=== PATIENT | male | born 1965 | race Caucasian/White ===

== ENCOUNTER 2018-05-31 19:24 | Emergency (ER) | payer BC ==
--- NOTE | 2018-05-31 19:26 | EDM.PDOC ---
ED HPI GENERAL MEDICAL PROBLEM - General Stated Complaint: RIGHT FOOT PAIN Time Seen by Provider: 05/31/18 19:25 Source of Information: Reports: Patient History Limitations: Reports: No Limitations - History of Present Illness INITIAL COMMENTS - FREE TEXT/NARRATIVE: HISTORY AND PHYSICAL: History of present illness: 52-year-old male presenting to emergency department with chief complaint of left foot pain 1 day Patient states that he woke up this morning and had left foot/heel pain. Denies any known trauma to the area. 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 States the pain is just below his Achilles near the top of his back heel. Denies any loss of sensation, strength. States pain is worse with walking and bending foot backwards. Denies any previous trauma or trauma to foot or ankle. On exam patient has tenderness to palpation allong area of attachement of Achilles. Hopkins test negative. No pain with flexion of toes and papation of plantar fascia. Review of systems: As per history of present illness and below otherwise all systems reviewed and negative. Past medical history: As per history of present illness and as reviewed below otherwise noncontributory. Surgical history: As per history of present illness and as reviewed below otherwise noncontributory. Social history: No reported history of drug or alcohol abuse. Family history: As per history of present illness and as reviewed below otherwise noncontributory. Physical exam: HEENT: Atraumatic, normocephalic, pupils reactive, negative for conjunctival pallor or scleral icterus, mucous membranes moist, throat clear, neck supple, nontender, trachea midline. Lungs: Clear to auscultation, breath sounds equal bilaterally, chest nontender. Heart: S1S2, regular, negative for clicks, rubs, or JVD. Abdomen: Soft, nondistended, nontender. Negative for masses or hepatosplenomegaly. Negative for costovertebral tenderness. Pelvis: Stable nontender. Genitourinary: Deferred. Rectal: Deferred. Extremities: Atraumatic, negative for cords or calf pain. Neurovascular unremarkable. Neuro: Awake, alert, oriented. Cranial nerves II through XII unremarkable. Cerebellum unremarkable. Motor and sensory unremarkable throughout. Exam nonfocal. Diagnostics: left foot x-ray Therapeutics: [] Impression: Achilles tendinopathy Plan: Left foot x-ray was unremarkable. Most likely patient has tendinopathy. Did give patient a prescription for diclofenac and told him to rest, ice, elevate, and follow up with primary care provider. Definitive disposition and diagnosis as appropriate pending reevaluation and review of above. Left Feet Pain Score (Numeric/FACES): 8 left heel Pain Score (Numeric/FACES): 8 - Related Data Allergies Allergy/AdvReac Type Severity Reaction Status Date / Time No Known Allergies Allergy Verified 05/31/18 20:14 Home Meds: Home Meds Aspirin [[place] Aspirin] 1 tab PO DAILY 04/25/16 [History] Multivitamin [Multivitamins] 1 tab PO DAILY 04/25/16 [History] Cetirizine [ZyrTEC] 05/31/18 [History] Past Medical History HEENT History: Reports: None Cardiovascular History: Reports: None Respiratory History: Reports: None Gastrointestinal History: Reports: GERD Genitourinary History: Reports: None Neurological History: Reports: None Psychiatric History: Reports: None Endocrine/Metabolic History: Reports: Obesity/BMI 30+ Hematologic History: Reports: None Immunologic History: Reports: None Oncologic (Cancer) History: Reports: None Dermatologic History: Reports: None - Past Surgical History GI Surgical History: Reports: Hernia, Inguinal Musculoskeletal Surgical History: Reports: Arthroscopic Knee ED ROS GENERAL - Review of Systems Review Of Systems: ROS reveals no pertinent complaints other than HPI. ED EXAM, GENERAL - Physical Exam Exam: See Below Course - Vital Signs Last Recorded V/S: Last Vital Signs Temp 98.2 F 05/31/18 20:07 Pulse 96 05/31/18 20:07 Resp 18 05/31/18 20:07 BP 141/85 H 05/31/18 20:07 Pulse Ox 96 05/31/18 20:07 - Orders/Labs/Meds Orders: Active Orders 24 hr Category Date Time Status Foot 2V Lt [CR] Stat Exams 05/31/18 20:04 Taken Departure - Departure Time of Disposition: 21:35 Disposition: Home, Self-Care 01 Condition: Good Clinical Impression: Achilles tendinitis, left leg - Discharge Information Referrals: Fernando Hernandez [Primary Care Provider] - Additional Instructions: My general discharge The following information is given to patients seen in the emergency department who are being discharged to home. This information is to outline your options for follow-up care. We provide all patients seen in our emergency department with a follow-up referral. The need for follow-up, as well as the timing and circumstances, are variable depending upon the specifics of your emergency department visit. If you don't have a primary care physician on staff, we will provide you with a referral. We always advise you to contact your personal physician following an emergency department visit to inform them of the circumstance of the visit and for follow-up with them and/or the need for any referrals to a consulting specialist. The emergency department will also refer you to a specialist when appropriate. This referral assures that you have the opportunity for follow-up care with a specialist. All of these measure are taken in an effort to provide you with optimal care, which includes your follow-up. Under all circumstances we always encourage you to contact your private physician who remains a resource for coordinating your care. When calling for follow-up care, please make the office aware that this follow-up is from your recent emergency room visit. If for any reason you are refused follow-up, please contact the [facility] at and asked to speak to the emergency department charge nurse. [facility] [address] [place] [id number] Follow-up with primary care as we discussed. Take medications as discussed. Return emergency department if any new or worsening symptoms. - My Orders Last 24 Hours: My Active Orders 05/31/18 20:04 Foot 2V Lt [CR] Stat - Assessment/Plan Last 24 Hours: My Active Orders 05/31/18 20:04 Foot 2V Lt [CR] Stat
[2018-05-31 20:14] VITALS: BP 141/85
--- NOTE | 2018-06-01 14:21 | CR ---
EXAM DATE: 05/31/18 PATIENT'S AGE: 52 Patient: SHAYAN ARREAGA Facility: [place], [place] Site . Site : 1965 Study: XRay Extremity Left foot [id number]/13/2018 9:14:06 PM Ordering Physician: Gelacio Pena Final Report: INDICATION: pain x1 day, no known injury TECHNIQUE: Two views of the left foot COMPARISON: None FINDINGS: Bones: Enthesophyte formation along the plantar aspect of the calcaneus and Achilles tendon insertion to the calcaneus. No fractures or bone lesions. Joint spaces: Unremarkable. Soft tissues: Soft tissue swelling laterally. IMPRESSION: Soft tissue swelling laterally. No evidence for acute bony abnormality on these two views of the left foot. Dictated by Kirill Bae MD @ 05/31/2018 9:33:57 PM Dictated by: Kirill Bae MD @ 05/31/2018 21:34:06 (Electronic Signature) Report Signed by Proxy. [facility]ITAL[facility]ade
== END 2018-05-31 22:01 | disposition home or self-care (01) ==
LOC: MW.ED 19:24
DX: M76.62 Achilles tendinitis, left leg (principal); Z79.82 Long term (current) use of aspirin; Z79.899 Other long term (current) drug therapy
CPT/HCPCS: 73620-26-LT; 73620-LT; 99282; 99283

== ENCOUNTER 2018-06-30 12:23 | Emergency (ER) | payer BC ==
--- NOTE | 2018-06-30 13:27 | EDM.PDOC ---
ED HPI GENERAL MEDICAL PROBLEM - General Chief Complaint: Skin Complaint Stated Complaint: RASH ALL OVER Time Seen by Provider: 06/30/18 12:37 Source of Information: Reports: Patient History Limitations: Reports: No Limitations - History of Present Illness INITIAL COMMENTS - FREE TEXT/NARRATIVE: History of present illness: []Patient began having a rash on his upper torso and his upper arms the shape of a "T-shirt"last night. He really itchy and red hot. He denies any new clothing, detergents, medications or exposures. He took one Benadryl last night without relief. Review of systems: As per history of present illness and below otherwise all systems reviewed and negative. Past medical history: As per history of present illness and as reviewed below otherwise noncontributory. Surgical history: As per history of present illness and as reviewed below otherwise noncontributory. Social history: No reported history of drug or alcohol abuse. Family history: As per history of present illness and as reviewed below otherwise noncontributory. Physical exam: General: Well developed, well nourished in NAD HEENT: Atraumatic, normocephalic, pupils reactive, negative for conjunctival pallor or scleral icterus, mucous membranes moist, throat clear, neck supple, nontender, trachea midline. Lungs: Clear to auscultation, breath sounds equal bilaterally, chest nontender. Heart: S1S2, regular, negative for clicks, rubs, or JVD. Abdomen: Soft, nondistended, nontender. Negative for masses or hepatosplenomegaly. Negative for costovertebral tenderness. Pelvis: Stable nontender. Genitourinary: Deferred. Rectal: Deferred. Extremities: Atraumatic, negative for cords or calf pain. Neurovascular unremarkable. Neuro: Awake, alert, oriented. Cranial nerves II through XII unremarkable. Cerebellum unremarkable. Motor and sensory unremarkable throughout. Exam nonfocal. Skin:warm and dry Diagnostics: Vital signs stable Therapeutics: None ED Course: Unremarkable Impression: Allergic reaction, Prescriptions: Medrol Dosepak, Plan: take 2 Benadryl every 4 hours as needed for itching, he is Medrol Dosepak as directed on package insert, follow-up with primary care. Definitive disposition and diagnosis as appropriate pending reevaluation and review of above. - Related Data Allergies Allergy/AdvReac Type Severity Reaction Status Date / Time No Known Allergies Allergy Verified 05/31/18 20:14 Home Meds: Home Meds Aspirin [[place] Aspirin] 1 tab PO DAILY 04/25/16 [History] Multivitamin [Multivitamins] 1 tab PO DAILY 04/25/16 [History] Cetirizine [ZyrTEC] 05/31/18 [History] methylPREDNISolone [Medrol] 4 mg PO ASDIRECTED #1 dosepk 06/30/18 [Rx] Past Medical History HEENT History: Reports: None Cardiovascular History: Reports: None Respiratory History: Reports: None Gastrointestinal History: Reports: GERD Genitourinary History: Reports: None Neurological History: Reports: None Psychiatric History: Reports: None Endocrine/Metabolic History: Reports: Obesity/BMI 30+ Hematologic History: Reports: None Immunologic History: Reports: None Oncologic (Cancer) History: Reports: None Dermatologic History: Reports: None - Infectious Disease History Infectious Disease History: Reports: Chicken Pox, Measles, Mumps - Past Surgical History Head Surgeries/Procedures: Reports: None GI Surgical History: Reports: Hernia, Inguinal Musculoskeletal Surgical History: Reports: Arthroscopic Knee Social & Family History - Family History Family Medical History: Noncontributory - Caffeine Use Caffeine Use: Reports: Coffee, Soda, Tea ED ROS GENERAL - Review of Systems Review Of Systems: ROS reveals no pertinent complaints other than HPI. ED EXAM, SKIN/RASH Exam: See Below (See history of present illness) Course - Vital Signs Last Recorded V/S: Last Vital Signs Temp 98.6 F 06/30/18 13:45 Pulse 55 L 06/30/18 13:45 Resp 18 06/30/18 13:45 BP 136/85 06/30/18 13:45 Pulse Ox 95 06/30/18 13:45 Departure - Departure Time of Disposition: 13:25 Disposition: Home, Self-Care 01 Condition: Good Clinical Impression: Allergic reaction Qualifiers: Encounter type: initial encounter Qualified Code(s): T78.40XA - Allergy, unspecified, initial encounter - Discharge Information *PRESCRIPTION DRUG MONITORING PROGRAM REVIEWED*: No *COPY OF PRESCRIPTION DRUG MONITORING REPORT IN PATIENT SCOTT: No Prescriptions: methylPREDNISolone [Medrol] 4 mg PO ASDIRECTED #1 dosepk Referrals: PCP,None [Primary Care Provider] - Forms: ED Department Discharge Additional Instructions: The following information is given to patients seen in the emergency department who are being discharged to home. This information is to outline your options for follow-up care. We provide all patients seen in our emergency department with a follow-up referral. The need for follow-up, as well as the timing and circumstances, are variable depending upon the specifics of your emergency department visit. If you don't have a primary care physician on staff, we will provide you with a referral. We always advise you to contact your personal physician following an emergency department visit to inform them of the circumstance of the visit and for follow-up with them and/or the need for any referrals to a consulting specialist. The emergency department will also refer you to a specialist when appropriate. This referral assures that you have the opportunity for follow-up care with a specialist. All of these measure are taken in an effort to provide you with optimal care, which includes your follow-up. Under all circumstances we always encourage you to contact your private physician who remains a resource for coordinating your care. When calling for follow-up care, please make the office aware that this follow-up is from your recent emergency room visit. If for any reason you are refused follow-up, please contact the [facility] Emergency Department at and asked to speak to the emergency department charge nurse. Medrol Dosepak as directed take 1-2 tablets of Benadryl every 4-6 hours for itching. Return if symptoms worsen or change. Follow-up with your primary care doctor [facility] [address] [place] [id number]
[2018-06-30 13:47] VITALS: BP 136/85
== END 2018-06-30 14:09 | disposition home or self-care (01) ==
LOC: MW.ED 12:23
DX: T78.40XA Allergy, unspecified, initial encounter (principal); E66.9 Obesity, unspecified; Z79.82 Long term (current) use of aspirin
CPT/HCPCS: 99282

== ENCOUNTER 2019-10-28 06:42 | Day surgery (SDC) | payer BC ==
[~2019-10-28 06:42] MED LIST: Lactated Ringers 1,000 ML IV SCH
[2019-10-28] MEDS ORDERED: Ondansetron 4 MG/2 ML SDV ONE (07:18)
[2019-10-28] MEDS ORDERED: fentaNYL 100 MCG/2 ML SDV ONE (07:19)
[2019-10-28] MEDS ORDERED: Midazolam 1 MG/ML 2 ML SDV ONE (07:19)
[2019-10-28] MEDS ORDERED: Propofol 200 MG/20 ML SDV ONE (07:19)
[2019-10-28] MEDS ORDERED: Citric Acid/Sodium Citrate Solution 30 ML Cup PO ONE (07:22)
--- NOTE | 2019-10-28 07:24 | PCM.PREANE ---
Preanesthetic Assessment - Anesthesia/Transfusion/Family Hx Anesthesia History: Prior Anesthesia Without Reaction Family History of Anesthesia Reaction: No Transfusion History: No Prior Transfusion(s) - Review of Systems General: No Symptoms Pulmonary: No Symptoms Cardiovascular: No Symptoms Neurological: No Symptoms Other: Reports: None - Physical Assessment NPO Status Date: 10/27/19 Vital Signs: Last Vital Signs Temp 97.7 F 10/28/19 07:10 Pulse 75 10/28/19 07:10 Resp 14 10/28/19 07:10 BP 129/79 10/28/19 07:10 Pulse Ox 96 10/28/19 07:10 Height: 5 ft 9 in Weight: 107.955 kg ASA Class: 2 Mental Status: Alert & Oriented x3 Airway Class: Mallampati = 2 Dentition: Reports: Normal Dentition ROM/Head Extension: Full Lungs: Clear to Auscultation, Normal Respiratory Effort Cardiovascular: Regular Rate, Regular Rhythm - Allergies Allergies/Adverse Reactions: Allergies Allergy/AdvReac Type Severity Reaction Status Date / Time No Known Allergies Allergy Verified 10/24/19 14:30 - Blood Blood Available: No - Anesthesia Plan Pre-Op Medication Ordered: Other (bicitra) - Acknowledgements Anesthesia Type Planned: General Anesthesia Pt an Appropriate Candidate for the Planned Anesthesia: Yes Alternatives and Risks of Anesthesia Discussed w Pt/Guardian: Yes Pt/Guardian Understands and Agrees with Anesthesia Plan: Yes Additional Comments: PMH: allergic rhinitis, gerd, PLAN: tiva PreAnesthesia Questionnaire HEENT History: Reports: Allergic Rhinitis Cardiovascular History: Reports: Hypertension Other Cardiovascular History: has an appointment to evaluate blood pressure on Respiratory History: Reports: None Gastrointestinal History: Reports: Colon Polyp, GERD Genitourinary History: Reports: None Musculoskeletal History: Reports: Arthritis Neurological History: Reports: None Psychiatric History: Reports: None Endocrine/Metabolic History: Reports: Obesity/BMI 30+ Hematologic History: Reports: None Immunologic History: Reports: None Oncologic (Cancer) History: Reports: None Dermatologic History: Reports: None - Infectious Disease History Infectious Disease History: Reports: Chicken Pox, Measles, Mumps - Past Surgical History Head Surgeries/Procedures: Reports: None GI Surgical History: Reports: Colonoscopy, Hernia, Inguinal Male Surgical History: Reports: Vasectomy Musculoskeletal Surgical History: Reports: Arthroscopic Knee - SUBSTANCE USE Smoking Status *Q: Never Smoker Recreational Drug Use History: No - HOME MEDS Home Medications: Home Meds Aspirin [[place] Aspirin EC] 81 mg PO DAILY 04/25/16 [History] Multivitamin [Multivitamins] 1 tab PO DAILY 04/25/16 [History] Famotidine [Pepcid AC] 10 mg PO DAILY 10/24/19 [History] - CURRENT (IN HOUSE) MEDS Current Meds: Current Medications Lactated Ringer's (Ringers, Lactated) 1,000 mls @ 125 mls/hr IV ASDIRECTED [facility] Last Admin: 10/28/19 07:15 Dose: 125 mls/hr
--- NOTE | 2019-10-28 08:48 | PCM.OPNOTE ---
- General Post-Op/Procedure Note Date of Surgery/Procedure: 10/28/19 Operative Procedure(s): egd w bx. colonoscopy Findings: see [id number] Pre Op Diagnosis: black tarry stool Post-Op Diagnosis: Same Anesthesia Technique: Moderate Sedation Primary Surgeon: Antonino Sanchez Pathology: egd bx Complications: None Condition: Good
--- NOTE | 2019-10-28 08:58 | PCM.POSTAN ---
POST ANESTHESIA ASSESSMENT - MENTAL STATUS Mental Status: Alert - VITAL SIGNS Vital Signs: Last Vital Signs Temp 36.5 C 10/28/19 07:10 Pulse 59 L 10/28/19 08:50 Resp 16 10/28/19 08:50 BP 110/74 10/28/19 08:50 Pulse Ox 96 10/28/19 08:50 - RESPIRATORY Respiratory Status: Respiratory Rate WNL - CARDIOVASCULAR CV Status: Pulse Rate WNL - GASTROINTESTINAL GI Status: No Symptoms - PAIN Pain Score: 0 - POST OP HYDRATION Hydration Status: Adequate & Stable (No pain or nausea. VSS. ready for transfer to .)
[2019-10-28 09:30] VITALS: BP 124/70; PULSE 59
--- NOTE | 2019-10-28 10:37 | OR ---
SURGEON: Antonino Sanchez MD DATE OF PROCEDURE: 10/28/2019 PREOPERATIVE DIAGNOSIS: Black tarry stool. POSTOPERATIVE DIAGNOSIS: Esophagogastroduodenoscopy diagnosis is gastroesophageal reflux disease, colonoscopy diagnosis is hemorrhoid. PROCEDURES PERFORMED: Esophagogastroduodenoscopy with biopsy, colonoscopy. DESCRIPTION OF PROCEDURE: EGD: The patient was taken to the endoscopy room, and with the [employer], Diprivan was administered. A well-lubricated EGD scope was gently inserted through the oropharynx, down the esophagus, passing through the gastroesophageal junction, into the stomach. The mucosa was examined upon the passage. Any etiology will be noted. Once in the stomach, we continued to advance to the distal antrum, passed through the pylorus into the second portion of the duodenum. Again, the mucosa was examined for any abnormality and etiology. The scope was then retrieved back to the stomach and then retroflexed to look at the fundus of the stomach. If a biopsy was indicated, we will biopsy the antrum, body, and gastroesophageal junction. The air will be sucked out while the scope is retrieved to reduce the patient's discomfort. The patient tolerated the procedure well. There were no intraoperative complications. Dr. Sanchez was present through the whole procedure. Prior to surgery, a time-out had been called, the patient identified, procedure identified and antibiotic administered. The patient was taken to the endoscopy room. A time out was called, patient identified, and procedure identified. Diprivan was then administrated. Patient went from awake to sleep, hearing doctor talking or door closing is normal. Perineum inspection and digital examination were then performed. A well- lubricated colonoscope was gently inserted through the rectum, advanced past the rectosigmoid junction, the descending colon, splenic flexure, transverse colon, hepatic flexure, ascending colon, arrived to the cecum. Cecum was identified as dictated in the finding. Then the scope was carefully withdrawn while attention was paid to the mucosal surface for any abnormality. Air will be sucked out during the scope withdrawal. At the rectum, retroflexed to examine any rectal diseases, fistula or hemorrhoids. Patient tolerated procedure well. There were no intraoperative complications, and Dr. Sanchez was present throughout the whole procedure. FINDINGS: EGD findings: 1. The patient is easily sedated with [employer] and Diprivan, the patient is soundly snoring. 2. Oropharynx and proximal esophagus are free of disease, stricture, inflammation, infection, or varicosity. Distal esophagus at GE junction at 40 shows moderate salmon-colored change consistent with moderate GERD. Stomach rugae are normal in appearance. Antrum is mildly inflamed. Duodenum is grossly normal. Scope retrieved back to the stomach. Retroflexed look at the fundus of the stomach, there is no hiatal hernia. Biopsy done at antrum, body, and GE junction at 40 and sucked out the gas while scope coming out. Through the whole study, I do not see any varicosity, blood, ulcer, food particle, or bile. Colonoscopy findings: 1. The patient is easily sedated with [employer] and Diprivan, the patient is soundly snoring. 2. Bowel prep is average. Large amount of opaque yellow stool, but they can be easily irrigated off the mucosa, so does not seem to be too much compromise of the study. No semi-formed stool. No stool ball. Colon is rather redundant in the sigmoid, takes some time to negotiate around the sigmoid. Cecum is indicated by ileocecal fold, one-to-one indentation, appendiceal orifice. ScopeGuide pointing south. Light emittance is not observed because of body habitus. Mucosa examined upon scope pulling out with a lot of irrigation because of the yellow liquid stool, but again they are very easily irrigated off the mucosa. There is no diverticulosis, polyp, mass, growth, inflammation, stricture, ulceration, AV malformation, bleeding. The stool was yellow in color. The patient has mild internal hemorrhoid, no external hemorrhoid. The patient would benefit from a repeat colonoscopy in 10 years from today or if clinically indicated otherwise. As always, thank you for the kind referral. ALESSANDRO / ALAN /[id number]
--- NOTE | 2019-10-28 12:30 | PCM48HPAN ---
Post Anesthesia Note - EVALUATION WITHIN 48HRS OF ANESTHETIC Vital Signs in Normal Range: Yes Patient Participated in Evaluation: Yes Respiratory Function Stable: Yes Airway Patent: Yes Cardiovascular Function Stable: Yes Hydration Status Stable: Yes Pain Control Satisfactory: Yes Nausea and Vomiting Control Satisfactory: Yes Mental Status Recovered: Yes Vital Signs: Last Vital Signs Temp 97.2 F 10/28/19 09:05 Pulse 59 L 10/28/19 09:05 Resp 14 10/28/19 09:05 BP 124/70 10/28/19 09:05 Pulse Ox 93 L 10/28/19 09:05
== END 2019-10-28 09:28 | disposition home or self-care (01) ==
LOC: MW.SDS 06:42
PROVIDERS: ATTEND Surgery
DX: R19.5 Other fecal abnormalities (principal); K21.0 Gastro-esophageal reflux disease with esophagitis; K64.8 Other hemorrhoids; K29.50 Unspecified chronic gastritis without bleeding; B96.81 Helicobacter pylori [H. pylori] as the cause of diseases classified elsewhere; Q43.8 Other specified congenital malformations of intestine; I10 Essential (primary) hypertension; J30.2 Other seasonal allergic rhinitis; M19.90 Unspecified osteoarthritis, unspecified site; E66.9 Obesity, unspecified; Z79.82 Long term (current) use of aspirin; Z87.891 Personal history of nicotine dependence; Z68.35 Body mass index [BMI] 35.0-35.9, adult
CPT/HCPCS: 43239; 45378; A9270; J2001; J2250; J2405; J2704; J3010; J7120

== ENCOUNTER 2020-05-04 09:01 | Day surgery (SDC) | payer BC ==
[~2020-05-04 09:01] MED LIST changes: +Lidocaine 2% 5 ML SDV ONE; +Propofol 200 MG/20 ML SDV ONE; +fentaNYL 100 MCG/2 ML SDV ONE
--- NOTE | 2020-05-04 10:13 | PCM.PREANE ---
Preanesthetic Assessment - Anesthesia/Transfusion/Family Hx Anesthesia History: Prior Anesthesia Without Reaction Family History of Anesthesia Reaction: No Transfusion History: No Prior Transfusion(s) Intubation History: Unknown - Review of Systems General: No Symptoms Pulmonary: No Symptoms Cardiovascular: No Symptoms Gastrointestinal: No Symptoms, Other (H. Pylory 6 months ago, received 3 drug treatment) Neurological: No Symptoms Other: Reports: None - Physical Assessment NPO Status Date: 05/03/20 NPO Status Time: 20:00 Vital Signs: Last Vital Signs Temp 36.9 C 05/04/20 09:10 Pulse 59 L 05/04/20 09:10 Resp 16 05/04/20 09:10 BP 118/81 05/04/20 09:10 Pulse Ox 93 L 05/04/20 09:10 Height: 5 ft 9 in Weight: 108.409 kg ASA Class: 2 Mental Status: Alert & Oriented x3 Airway Class: Mallampati = 2 Dentition: Reports: Normal Dentition Thyro-Mental Finger Breadths: 3 Mouth Opening Finger Breadths: 2 ROM/Head Extension: Full Lungs: Clear to Auscultation, Normal Respiratory Effort Cardiovascular: Regular Rate, Regular Rhythm - Allergies Allergies/Adverse Reactions: Allergies Allergy/AdvReac Type Severity Reaction Status Date / Time No Known Allergies Allergy Verified 05/02/20 08:38 - Blood Blood Available: No - Anesthesia Plan Pre-Op Medication Ordered: None - Acknowledgements Anesthesia Type Planned: MAC Pt an Appropriate Candidate for the Planned Anesthesia: Yes Alternatives and Risks of Anesthesia Discussed w Pt/Guardian: Yes Pt/Guardian Understands and Agrees with Anesthesia Plan: Yes PreAnesthesia Questionnaire HEENT History: Reports: Allergic Rhinitis Cardiovascular History: Reports: Hypertension Respiratory History: Reports: None Gastrointestinal History: Reports: Colon Polyp, GERD, GI Bleed Genitourinary History: Reports: None Musculoskeletal History: Reports: Arthritis Neurological History: Reports: None Psychiatric History: Reports: None Endocrine/Metabolic History: Reports: Obesity/BMI 30+ (BMI 35.3) Hematologic History: Reports: None Immunologic History: Reports: None Oncologic (Cancer) History: Reports: None Dermatologic History: Reports: None - Infectious Disease History Infectious Disease History: Reports: Chicken Pox, Measles, Mumps - Past Surgical History Head Surgeries/Procedures: Reports: None HEENT Surgical History: Reports: None Cardiovascular Surgical History: Reports: None Respiratory Surgical History: Reports: None GI Surgical History: Reports: Colonoscopy, EGD (6 months ago), Hernia, Inguinal (right) Male Surgical History: Reports: Vasectomy Endocrine Surgical History: Reports: None Neurological Surgical History: Reports: None Musculoskeletal Surgical History: Reports: Arthroscopic Knee (right knee) Oncologic Surgical History: Reports: None Dermatological Surgical History: Reports: None - SUBSTANCE USE Smoking Status *Q: Former Smoker Tobacco Use Within Last Twelve Months: No - HOME MEDS Home Medications: Home Meds Aspirin [Porter Aspirin EC] 81 mg PO DAILY 04/25/16 [History] Multivitamin [Multivitamins] 1 tab PO DAILY 04/25/16 [History] Losartan Potassium 25 mg PO BEDTIME 05/02/20 [History] Omeprazole 20 mg PO DAILY 05/02/20 [History] Sertraline HCl 50 mg PO DAILY 05/02/20 [History] - CURRENT (IN HOUSE) MEDS Current Meds: Current Medications Lactated Ringer's (Ringers, Lactated) 1,000 mls @ 125 mls/hr IV ASDIRECTED [facility] Last Admin: 05/04/20 09:20 Dose: 125 mls/hr Documented by: Discontinued Medications Fentanyl (Sublimaze) Confirm Administered Dose 100 mcg .ROUTE .STK-MED ONE Stop: 05/04/20 07:28 Lidocaine (Xylocaine-Mpf 2%) Confirm Administered Dose 5 ml .ROUTE .STK-MED ONE Stop: 05/04/20 07:28 Propofol (Diprivan 20 Ml) Confirm Administered Dose 400 mg .ROUTE .STK-MED ONE Stop: 05/04/20 07:28
[2020-05-04] MEDS ORDERED: Midazolam 1 MG/ML 2 ML SDV ONE (10:55)
--- NOTE | 2020-05-04 11:24 | PCM.OPNOTE ---
- General Post-Op/Procedure Note Date of Surgery/Procedure: 05/04/20 Operative Procedure(s): egd w bx Findings: see [id number] Pre Op Diagnosis: h pylori infection hx Post-Op Diagnosis: Same Anesthesia Technique: Moderate Sedation (dejan) Primary Surgeon: Antonino Sanchez Pathology: egd bx Complications: None Condition: Good
--- NOTE | 2020-05-04 11:32 | PCM.POSTAN ---
POST ANESTHESIA ASSESSMENT - MENTAL STATUS Mental Status: Alert, Oriented - VITAL SIGNS Vital Signs: Last Vital Signs Temp 36.6 C 05/04/20 11:13 Pulse 58 L 05/04/20 11:27 Resp 12 05/04/20 11:27 BP 102/66 05/04/20 11:27 Pulse Ox 94 L 05/04/20 11:27 - RESPIRATORY Respiratory Status: Respiratory Rate WNL, Airway Patent, O2 Saturation Stable - CARDIOVASCULAR CV Status: Pulse Rate WNL, Blood Pressure Stable - GASTROINTESTINAL GI Status: No Symptoms - PAIN Pain Score: 0 - POST OP HYDRATION Hydration Status: Adequate & Stable - OBSERVATIONS Free Text/Narrative:: No anesthesia problems
[2020-05-04 11:37] VITALS: BP 101/68; PULSE 57
--- NOTE | 2020-05-04 11:57 | PCM48HPAN ---
Post Anesthesia Note - EVALUATION WITHIN 48HRS OF ANESTHETIC Vital Signs in Normal Range: Yes Patient Participated in Evaluation: Yes Respiratory Function Stable: Yes Airway Patent: Yes Cardiovascular Function Stable: Yes Hydration Status Stable: Yes Pain Control Satisfactory: Yes Nausea and Vomiting Control Satisfactory: Yes Mental Status Recovered: Yes Vital Signs: Last Vital Signs Temp 36.7 C 05/04/20 11:32 Pulse 57 L 05/04/20 11:32 Resp 14 05/04/20 11:32 BP 101/68 05/04/20 11:32 Pulse Ox 91 L 05/04/20 11:32 - COMMENTS/OBSERVATIONS Free Text/Narrative:: No anesthesia problems
--- NOTE | 2020-05-04 12:40 | OR ---
SURGEON: Antonino Sanchez MD DATE OF PROCEDURE: 05/04/2020 PREOPERATIVE DIAGNOSIS: History of Helicobacter pylori. POSTOPERATIVE DIAGNOSIS: History of Helicobacter pylori. PROCEDURE PERFORMED: Esophagogastroduodenoscopy with biopsy. PRIMARY SURGEON: Antonino Sanchez MD COMPLICATIONS: None. DESCRIPTION OF PROCEDURE: EGD: The patient was taken to the endoscopy room, and with the [employer], Diprivan was administered. A well-lubricated EGD scope was gently inserted through the oropharynx, down the esophagus, passing through the gastroesophageal junction, into the stomach. The mucosa was examined upon the passage. Any etiology will be noted. Once in the stomach, we continued to advance to the distal antrum, passed through the pylorus into the second portion of the duodenum. Again, the mucosa was examined for any abnormality and etiology. The scope was then retrieved back to the stomach and then retroflexed to look at the fundus of the stomach. If a biopsy was indicated, we will biopsy the antrum, body, and gastroesophageal junction. The air will be sucked out while the scope is retrieved to reduce the patient's discomfort. The patient tolerated the procedure well. There were no intraoperative complications. Dr. Sanchez was present through the whole procedure. Prior to surgery, a time-out had been called, the patient identified, procedure identified and antibiotic administered. FINDINGS: 1. The patient is easily sedated with FR[employer]YING [employer]ER and Diprivan, the patient is soundly snoring. 2. Oropharynx and proximal esophagus are free of disease. Distal esophagus at GE junction at 40 shows salmon-colored change with skip lesion. Does not look like inflamed, but there is a color change, suggests acid reflux. Stomach rugae are normal in appearance and there is no food or bile or blood observed. Antrum area is slightly inflamed and in one area it looked like it is so hyperemic that almost like an impending ulcer. It is not quite a leonardo ulcer yet, but is very very red. Duodenum is grossly normal. Retroflexed look at the fundus of stomach, the patient has a small hiatal hernia. Biopsy done at antrum, body, GE junction at 40 and sucked out the gas while scope pulling out. ALESSANDRO / ALAN /[id number]
== END 2020-05-04 12:04 | disposition home or self-care (01) ==
LOC: MW.SDS 09:01
PROVIDERS: ATTEND Surgery
DX: K29.50 Unspecified chronic gastritis without bleeding (principal); K21.0 Gastro-esophageal reflux disease with esophagitis; I10 Essential (primary) hypertension; K44.9 Diaphragmatic hernia without obstruction or gangrene; E66.9 Obesity, unspecified; Z79.82 Long term (current) use of aspirin; Z79.899 Other long term (current) drug therapy; Z87.891 Personal history of nicotine dependence; Z68.35 Body mass index [BMI] 35.0-35.9, adult
CPT/HCPCS: 43239; J2001; J2250; J2704; J3010; J7120; 00731; 88305; 88312

== ENCOUNTER 2021-06-01 18:12 | Emergency (ER) | payer BC ==
[2021-06-01] MEDS ORDERED: Sodium Chloride 0.9% 10 ML Syringe FLUSH PRN (18:20)
[2021-06-01] MEDS ORDERED: Sodium Chloride 0.9% 2.5 ML Syringe FLUSH PRN (18:20)
--- NOTE | 2021-06-01 18:25 | PCM.EKG ---
#1 Interpretation EKG Interpretation Comments: EKG date June 01, 2021 6:17 PM EKG: As interpreted by ER physician: Luly: Nonspecific ST-T wave abnormalities Normal axis No evidence of ST elevation RI Normal sinus rhythm heart rate of 67
--- NOTE | 2021-06-01 18:28 | EDM.PDOC ---
ED HPI GENERAL MEDICAL PROBLEM - General Chief Complaint: Chest Pain Stated Complaint: CHEST PAINS Time Seen by Provider: 06/01/21 18:20 Source of Information: Reports: Patient History Limitations: Reports: No Limitations - History of Present Illness INITIAL COMMENTS - FREE TEXT/NARRATIVE: HISTORY AND PHYSICAL: History of present illness: Patient is a 55-year-old male who presents to the emergency room with complaints of left lateral chest pain. He states around 4 or 5 AM this morning he woke up with sharp stabbing pain to the left lateral chest. He states his pain is int ermittent and is not precipitated by anything. Nothing makes the pain better or worse. Pain can last anywhere from a few seconds to a few minutes. Patient also states that his and daughter are currently quarantined for COVID-19, in the same household as them. He did get tested yesterday and was negative. He has had body aches, chills and a mild headache over the past 2 to 3 days. He has no personal history of heart or lung disease. Patient denies any fever, change in vision, syncope or near syncope. Denies any back pain, shortness of breath or cough. Denies any abdominal pain, nausea, vomiting, diarrhea, constipation or dysuria. Has not noted any blood in urine or stool. Patient has been eating and drinking appropriately. Patient took 2 full 325 mg aspirins prior to arrival. Review of systems: As per history of present illness and below otherwise all systems reviewed and negative. Past medical history: As per history of present illness and as reviewed below otherwise n oncontributory. Surgical history: As per history of present illness and as reviewed below otherwise noncontributory. Social history: See social history for further information Family history: As per history of present illness and as reviewed below otherwise noncontributory. Physical exam: General: Well developed and well nourished 55 year old male. Alert and orientated x 3. Nontoxic in appearance and in no acute distress. Vital signs are stable and have been reviewed by me. Nursing notes were reviewed. HEENT: Atraumatic, normocephalic, pupils equal and reactive bilaterally, negative for conjunctival pallor or scleral icterus, mucous membranes moist, trachea midline. No drooling or trismus noted. No meningeal signs. No hot potato voice noted. Lungs: Clear to auscultation bilaterally. No wheezes, rales, or rhonchi. Chest nontender. Normal work of breathing, no accessory muscles used. Heart: S1S2, regular rate and rhythm without overt murmur, gallops, or rubs. No JVD. No peripheral edema Abdomen: Soft, nondistended, nontender. Skin: Intact, warm, dry. No lesions or rashes noted. Hematologic: No petechiae or purpra. Mucosa appropriate color and normal nail bed color and refill. Extremities: Atraumatic, moves all extremities per self without difficulty or deficits, negative for cords or calf pain. Neurovascular unremarkable. Neuro: Awake, alert, oriented. Cranial nerves II through XII unremarkable. Cerebellum unremarkable. Motor and sensory unremarkable throughout. Exam nonfocal. Psychiatric: Mood and affect are appropriate. Normal thought process. Answering questions appropriately. Notes: *This patient was seen and evaluated during the 2019 SARS-CoV-2 novel coronavirus pandemic period. Community viral transmission is ongoing at time of this encounter and the emergency department is operating under pandemic response procedures. Patient is a 55-year-old male who presents to the emergency room with left low anterior/lateral chest wall pain. States the pain is intermittent noticed it around 4 AM this morning. Currently is pain-free. He has 2 family members in the home that are currently COVID-19 positive. States he was checked yesterday and was negative. Patient has low risk factors but we will do a full cardiac work-up along with a D-dimer. Patient has been pain-free while here in the emergency room. His labs are unremarkable. Vital signs have remained stable. He has positive for COVID-19. I have talked with the patient about today's findings, in addition to providing specific details for plan of care. Reassessment at the time of disposition demonstrates that the patient is in no acute distress. The patient is stable for discharge, counseling was provided and we discussed in great detail signs and symptoms that would prompt them to return to the Emergency Department. Medication, follow up and supportive care measures were reviewed and discussed. Voices understanding and is agreeable to plan of care. Denies any further questions or concerns at this time. Diagnostics: CBC, CMP, troponin, COVID-19, EKG, chest x-ray Therapeutics: Saline lock Prescription: None Impression: Nonspecific chest pain COVID-19 Plan: 1. Your COVID-19 screening is positive. That means you do have the coronavirus and you are considered contagious. Your vital signs and oxygen saturation are well enough that you were able to monitor your symptoms at home. Continue to monitor for trouble breathing, new confusion or inability to arouse, bluish lips or face or any of the other symptoms we discussed -if this occurs please return to the emergency room immediately. 2. Please self quarantine until cleared by [facility]. Inform any persons that you have been in contact with since you started becoming symptomatic that you have tested positive; they should be made aware and take the appropriate steps as needed. 3. You can take NyQuil during the evening to help get a restful night sleep. May alternate Tylenol and ibuprofen as needed for pain and fever management. 4. The [facility] department will be calling you and following up with you. The [place] COVID 19 Hotline phone number , They are open Thursday - Thursday 7am - 7pm. Follow up with your primary care provider for re-evaluation as directed. Definitive disposition and diagnosis as appropriate pending reevaluation and review of above. Left chest Pain Score (Numeric/FACES): 7 - Related Data Allergies Allergy/AdvReac Type Severity Reaction Status Date / Time No Known Allergies Allergy Verified 06/01/21 18:16 Home Meds: Home Meds Aspirin [Hubbard Aspirin EC] 81 mg PO DAILY 04/25/16 [History] Losartan Potassium 50 mg PO BEDTIME 05/02/20 [History] Sertraline HCl 50 mg PO DAILY 05/02/20 [History] rOPINIRole [Requip] 0.25 mg PO BEDTIME 06/01/21 [History] Past Medical History HEENT History: Reports: Allergic Rhinitis Cardiovascular History: Reports: Hypertension Respiratory History: Reports: None Gastrointestinal History: Reports: Colon Polyp, GERD, GI Bleed Genitourinary History: Reports: None Musculoskeletal History: Reports: Arthritis Neurological History: Reports: None Psychiatric History: Reports: ADHD Endocrine/Metabolic History: Reports: Obesity/BMI 30+ Hematologic History: Reports: None Immunologic History: Reports: None Oncologic (Cancer) History: Reports: None Dermatologic History: Reports: None - Infectious Disease History Infectious Disease History: Reports: Chicken Pox, Measles, Mumps - Past Surgical History Head Surgeries/Procedures: Reports: None HEENT Surgical History: Reports: None Cardiovascular Surgical History: Reports: None Respiratory Surgical History: Reports: None GI Surgical History: Reports: Colonoscopy, EGD, Hernia, Inguinal Male Surgical History: Reports: Vasectomy Endocrine Surgical History: Reports: None Neurological Surgical History: Reports: None Musculoskeletal Surgical History: Reports: Arthroscopic Knee Oncologic Surgical History: Reports: None Dermatological Surgical History: Reports: None Social & Family History - Family History Family Medical History: No Pertinent Family History - Tobacco Use Tobacco Use Status *Q: Former Tobacco User Used Tobacco, but Quit: Yes Month/Year Tobacco Last Used: 2009 - Caffeine Use Caffeine Use: Reports: None - Recreational Drug Use Recreational Drug Use: No ED ROS GENERAL - Review of Systems Review Of Systems: Comprehensive ROS is negative, except as noted in HPI. ED EXAM, GENERAL - Physical Exam Exam: See Below (See dictation) Course - Vital Signs Last Recorded V/S: Last Vital Signs Temp 97.1 F 06/01/21 18:18 Pulse 67 06/01/21 19:29 Resp 16 06/01/21 19:29 BP 121/78 06/01/21 19:29 Pulse Ox 96 06/01/21 19:29 - Orders/Labs/Meds Orders: Active Orders 24 hr Category Date Time Status EKG Documentation Completion [RC] STAT Care 06/01/21 18:20 Active Sodium Chloride 0.9% [Saline Flush] Med 06/01/21 18:20 Active 10 ml FLUSH ASDIRECTED PRN Sodium Chloride 0.9% [Saline Flush] Med 06/01/21 18:20 Active 2.5 ml FLUSH ASDIRECTED PRN Saline Lock Insert [OM.PC] Stat Oth 06/01/21 18:20 Ordered Medication Orders Sodium Chloride (Sodium Chloride 0.9% 10 Ml Syringe) 10 ml FLUSH ASDIRECTED PRN PRN Reason: Keep Vein Open Last Admin: 06/01/21 18:25 Dose: 10 ml Documented by: [id number] Sodium Chloride (Sodium Chloride 0.9% 2.5 Ml Syringe) 2.5 ml FLUSH ASDIRECTED PRN PRN Reason: Keep Vein Open Last Admin: 06/01/21 18:25 Dose: 2.5 ml Documented by: [id number] Labs: Laboratory Tests 06/01/21 06/01/21 06/01/21 Range/Units 18:15 18:15 18:15 WBC 6.75 (4.0-11.0) K/uL RBC 4.86 (4.50-5.90) M/uL Hgb 15.6 (13.0-17.0) g/dL Hct 44.6 (38.0-50.0) % MCV 91.8 (80.0-98.0) fL MCH 32.1 H (27.0-32.0) pg MCHC 35.0 (31.0-37.0) g/dL RDW Std Deviation 45.3 (28.0-62.0) fl RDW Coeff of Telly 14 (11.0-15.0) % Plt Count 239 (150-400) K/uL MPV 9.00 (7.40-12.00) fL Neut % (Auto) 67.1 (48.0-80.0) % Lymph % (Auto) 15.0 L (16.0-40.0) % [place] % (Auto) 17.0 H (0.0-15.0) % Eos % (Auto) 0.6 (0.0-7.0) % Baso % (Auto) 0.3 (0.0-1.5) % Neut # (Auto) 4.5 (1.4-5.7) K/uL Lymph # (Auto) 1.0 (0.6-2.4) K/uL [place] # (Auto) 1.2 H (0.0-0.8) K/uL Eos # (Auto) 0.0 (0.0-0.7) K/uL Baso # (Auto) 0.0 (0.0-0.1) K/uL Nucleated RBC % 0.0 /100WBC Nucleated RBCs # 0 K/uL D-Dimer, Quantitative 0.33 (0.0-0.50) mg/L FEU Sodium 138 (136-148) mmol/L Potassium 4.0 (3.5-5.1) mmol/L Chloride 101 (98-107) mmol/L Carbon Dioxide 28.7 (21.0-32.0) mmol/L BUN 18 (7.0-18.0) mg/dL Creatinine 1.3 (0.8-1.3) mg/dL Est Cr Clr Drug Dosing 65.51 mL/min Estimated GFR (MDRD) 57.1 ml/min Glucose 88 (74-106) mg/dL Calcium 8.8 (8.5-10.1) mg/dL Total Bilirubin 0.4 (0.2-1.0) mg/dL AST 60 H (15-37) IU/L ALT 80 H (14-63) IU/L Alkaline Phosphatase 68 (46-116) U/L Troponin I (0.000-0.056) ng/mL Total Protein 7.2 (6.4-8.2) g/dL Albumin 4.1 (3.4-5.0) g/dL Globulin 3.1 (2.6-4.0) g/dL Albumin/Globulin Ratio 1.3 (0.9-1.6) TSH, Ultra Sensitive 1.36 (0.36-3.74) uIU/mL SARS-CoV-2 RNA (ELAYNE) (NEGATIVE) 06/01/21 06/01/21 Range/Units 18:15 18:54 WBC (4.0-11.0) K/uL RBC (4.50-5.90) M/uL Hgb (13.0-17.0) g/dL Hct (38.0-50.0) % MCV (80.0-98.0) fL MCH (27.0-32.0) pg MCHC (31.0-37.0) g/dL RDW Std Deviation (28.0-62.0) fl RDW Coeff of Telly (11.0-15.0) % Plt Count (150-400) K/uL MPV (7.40-12.00) fL Neut % (Auto) (48.0-80.0) % Lymph % (Auto) (16.0-40.0) % [place] % (Auto) (0.0-15.0) % Eos % (Auto) (0.0-7.0) % Baso % (Auto) (0.0-1.5) % Neut # (Auto) (1.4-5.7) K/uL Lymph # (Auto) (0.6-2.4) K/uL [place] # (Auto) (0.0-0.8) K/uL Eos # (Auto) (0.0-0.7) K/uL Baso # (Auto) (0.0-0.1) K/uL Nucleated RBC % /100WBC Nucleated RBCs # K/uL D-Dimer, Quantitative (0.0-0.50) mg/L FEU Sodium (136-148) mmol/L Potassium (3.5-5.1) mmol/L Chloride (98-107) mmol/L Carbon Dioxide (21.0-32.0) mmol/L BUN (7.0-18.0) mg/dL Creatinine (0.8-1.3) mg/dL Est Cr Clr Drug Dosing mL/min Estimated GFR (MDRD) ml/min Glucose (74-106) mg/dL Calcium (8.5-10.1) mg/dL Total Bilirubin (0.2-1.0) mg/dL AST (15-37) IU/L ALT (14-63) IU/L Alkaline Phosphatase (46-116) U/L Troponin I < 0.050 (0.000-0.056) ng/mL Total Protein (6.4-8.2) g/dL Albumin (3.4-5.0) g/dL Globulin (2.6-4.0) g/dL Albumin/Globulin Ratio (0.9-1.6) TSH, Ultra Sensitive (0.36-3.74) uIU/mL SARS-CoV-2 RNA (ELAYNE) POSITIVE H (NEGATIVE) Meds: Medications Generic Name Dose Route Start Last Admin Trade Name Freq PRN Reason Stop Dose Admin Sodium Chloride 10 ml 06/01/21 18:20 06/01/21 18:25 Sodium Chloride 0.9% 10 Ml Syringe FLUSH 10 ml ASDIRECTED PRN Administration Keep Vein Open Sodium Chloride 2.5 ml 06/01/21 18:20 06/01/21 18:25 Sodium Chloride 0.9% 2.5 Ml Syringe FLUSH 2.5 ml ASDIRECTED PRN Administration Keep Vein Open Departure - Departure Time of Disposition: 19:53 Disposition: Home, Self-Care 01 Clinical Impression: COVID-19, Nonspecific chest pain Instructions: COVID-19 Forms: ED Department Discharge Additional Instructions: The following information is given to patients seen in the emergency department who are being discharged to home. This information is to outline your options for follow-up care. We provide all patients seen in our emergency department with a follow-up referral. The need for follow-up, as well as the timing and circumstances, are variable depending upon the specifics of your emergency department visit. If you don't have a primary care physician on staff, we will provide you with a referral. We always advise you to contact your personal physician following an emergency department visit to inform them of the circumstance of the visit and for follow-up with them and/or the need for any referrals to a consulting specialist. The emergency department will also refer you to a specialist when appropriate. This referral assures that you have the opportunity for follow-up care with a specialist. All of these measure are taken in an effort to provide you with optimal care, which includes your follow-up. Under all circumstances we always encourage you to contact your private physician who remains a resource for coordinating your care. When calling for follow-up care, please make the office aware that this follow-up is from your recent emergency room visit. If for any reason you are refused follow-up, please contact the [facility] Emergency Department at and asked to speak to the emergency department charge nurse. [facility] [address] [place] [address] [place] [address] Thank you for choosing the [facility] emergency department in [place] for your medical needs today. It was a pleasure caring for you. Today you were seen in the emergency department for chest pain. 1. Your COVID-19 screening is positive. That means you do have the coronavirus and you are considered contagious. Your vital signs and oxygen saturation are well enough that you were able to monitor your symptoms at home. Continue to monitor for trouble breathing, new confusion or inability to arouse, bluish lips or face or any of the other symptoms we discussed -if this occurs please return to the emergency room immediately. 2. Please self quarantine until cleared by [facility] Department. Inform any persons that you have been in contact with since you started becoming symptomatic that you have tested positive; they should be made aware and take the appropriate steps as needed. 3. You can take NyQuil during the evening to help get a restful night sleep. May alternate Tylenol and ibuprofen as needed for pain and fever management. 4. The [facility] department will be calling you and following up with you. The [place] [employer] Hotline phone number , They are open Thursday - Thursday 7am - 7pm. Follow up with your primary care provider for re-evaluation as directed. Sepsis Event Note (ED) - Focused Exam Vital Signs: Vital Signs Temp Pulse Resp BP Pulse Ox 06/01/21 19:29 67 16 121/78 96 06/01/21 18:18 97.1 F 71 18 136/71 97 - My Orders Last 24 Hours: My Active Orders 06/01/21 18:20 EKG Documentation Completion [RC] STAT Sodium Chloride 0.9% [Saline Flush] 10 ml FLUSH ASDIRECTED PRN Sodium Chloride 0.9% [Saline Flush] 2.5 ml FLUSH ASDIRECTED PRN Saline Lock Insert [OM.PC] Stat - Assessment/Plan Last 24 Hours: My Active Orders 06/01/21 18:20 EKG Documentation Completion [RC] STAT Sodium Chloride 0.9% [Saline Flush] 10 ml FLUSH ASDIRECTED PRN Sodium Chloride 0.9% [Saline Flush] 2.5 ml FLUSH ASDIRECTED PRN Saline Lock Insert [OM.PC] Stat
[2021-06-01 18:56] LABS: CARBON DIOXIDE,CO2 28.7 mmol/L (21.0-32.0)
--- NOTE | 2021-06-01 19:09 | CR ---
INDICATION: Chest pain TECHNIQUE: Single view chest. FINDINGS: The lungs are clear. The heart, mediastinum and pulmonary vessels are of normal size. There is no evidence of pleural disease. IMPRESSION: Negative chest. Dictated by Brittany Guadarrama MD @ 06/01/2021 7:07:[address] Brittany Guadarrama @ Jun 01 2021 7:07PM
[2021-06-01 19:29] VITALS: BP 121/78
[2021-06-01 20:13] VITALS: PULSE 72
== END 2021-06-01 20:17 | disposition home or self-care (01) ==
LOC: MW.ED 18:12
DX: U07.1 COVID-19 (principal); I10 Essential (primary) hypertension; E66.9 Obesity, unspecified; Z79.82 Long term (current) use of aspirin; Z79.899 Other long term (current) drug therapy; Z68.33 Body mass index [BMI] 33.0-33.9, adult; Z87.891 Personal history of nicotine dependence
CPT/HCPCS: 36415; 71045; 71045-26; 80053; 84443; 84484; 85025; 85379; 93005; 93010; 99284; 99285-25; U0002